=== PATIENT | female | born 2000 | race Caucasian/White ===

== ENCOUNTER 2024-05-22 01:05 | Emergency (ER) | payer OTHER, SELFPAY ==
[2024-05-22 01:10] VITALS: BP 113/74
[2024-05-22 03:54] VITALS: BP 105/71
--- NOTE | 2024-05-22 04:34 | ED.GENMED ---
History of Present Illness
General
Chief Complaint: Musculo-Skeletal Complaint
Source: patient
Exam Limitations: none
Time Seen by Provider: 05/22/24 04:28
History of Present Illness
History of Present Illness:
See MDM
Past History
Past History
ED Past Medical History: None
ED Past Surgical History: None
Social History
Tobacco: Non-smoker
Alcohol: None
Phy Exam
Physical Exam
Physical Exam:
See MDM
Course
Orders/Labs/Results
Orders:
Orders
05/22/24 01:14
CR Ankle - Left Min 3 Views Urgent
Comment:
Reason For Exam: injury
Foot, Left 3 View [CR Foot - Left Min 3 Views] Urgent
Comment:
Reason For Exam: injury
Vital Signs
Initial and Last Documented VS:
Initial Vital Signs
Temp Pulse Resp BP Pulse Ox
99 F 78 20 113/74 99
05/22/24 01:10 05/22/24 01:10 05/22/24 01:10 05/22/24 01:10 05/22/24 01:10
Last Documented Vital Signs
Temp Pulse Resp BP Pulse Ox
99 F 74 20 105/71 100
05/22/24 01:10 05/22/24 03:54 05/22/24 01:10 05/22/24 03:54 05/22/24 03:54
MDM/Problems Addressed
Differential Diagnosis Includes:
HPI and MDM Narrative:
23-year-old female presenting for evaluation of left ankle pain. Patient missed stepped on a curb and she twisted her ankle. Patient having trouble bearing weight. On my exam, there is mild tenderness to the left lateral malleolus. X-rays were
performed prior to my evaluation showing no obvious fracture. Discussed likely ankle sprain. Will give crutches and discussed follow-up with podiatry if symptoms persist. Discussed NSAIDs and ice
Physical exam
General: Well appearing and non-toxic
HEENT: protecting airway
Neck: appears supple
CV: No evidence of cyanosis
Resp: No accessory muscle use
Abd: Non-distended
Extremities: Tenderness to palpation of left lateral malleolus. Extremity otherwise neurovascularly intact
Neuro: alert
Psych: Normal affect
Skin: Intact
Problems Addressed including Acute and Chronic Conditions affecting care:
1. Ankle sprain
Acuity: acute
Prognosis: stable
Details: X-rays negative for fracture. Discussed rest and ice. Will give crutches and discussed follow-up with podiatry if symptoms persist
Differential Diagnosis (but not limited to): Ankle sprain, ankle fracture
Testing considered: Tib-fib x-ray but pain appears to be localized to lateral malleolus
Drug therapy (if applicable): OTC meds, please see d/c instruction regarding Rx drugs
Amount and/or Complexity of Data Reviewed
Clinical info obtained from: Patient
External data reviewed: N/A
Labs I independently reviewed (but not limited to): N/A
Radiology: X-ray independently reviewed: Ankle and foot x-ray without obvious fracture
Pulse Ox: not hypoxic
EKG independently reviewed: N/A
Loaders: N/A
Critical Care: N/A
Risk of Complication:
Social Determinants of health: Good social support
Discussed with other providers: N/A
Escalation of Care includes Admit/Obs: After being observed in the Emergency Department, pt stable for discharge.
Occasional wrong word or 'sound a like' substitutions may have occurred due to the inherent limitations of voice recognition software. Read the chart carefully and recognize, using context, where substitutions have occurred.
*Critical Care Note
Total Time (30-74mins, 75-104mins- exclusive of procedures): Not Applicable
ED Attending Note
-
Portions of this chart may have been created with voice recognition software.� Occasional wrong word or��sound alike� substitutions may have occurred due to the inherent limitations of voice recognition software.
Discharge Plan
Departure
Patient Disposition: Home (Routine Discharge)
Date of Disposition: 05/22/24
Time of Disposition: 04:34
Patient with high blood pressure during this ER visit?: No
Discharge Problem:
Left ankle sprain
Instructions: Ankle Sprain ED
Referrals:
Duran Tee DPM [Active] -
PRIVATE,PHYSICIAN [Family Provider] -
Activity Restrictions/Additional Instructions:
Please rest the ankle and use Motrin and ice. If symptoms persist, please follow-up with the compensation programs manager.
Interventions
Interventions:
*Risk Screen - Suicide Last Done: 05/22/24 01:10
*General Assessment Last Done: 05/22/24 01:10
*Neglect/Abuse Screening Last Done: 05/22/24 01:10
ED- Fall Risk Assessment Last Done: 05/22/24 01:10
*ED COVID-19 Vaccine History Last Done: 05/22/24 01:10
ED-Musculoskeletal Assessment Last Done: 05/22/24 03:43
Discharge Date and Time
Print Language: MALAY
[2024-05-22] MEDS: MOTRIN 400 MG PO (04:41)
== END 2024-05-22 05:07 | disposition home or self-care (01) ==
LOC: EMR 01:05
PROVIDERS: EMERGENCY PHYSICIAN Student in an Organized Health Care Education/Training Program
DX: S93.402A Sprain of unspecified ligament of left ankle, initial encounter (principal); X50.1XXA Overexertion from prolonged static or awkward postures, initial encounter
CPT/HCPCS: 99283; 73610; 73630

== ENCOUNTER 2024-07-02 01:16 | Emergency (ER) | payer OTHER, SELFPAY ==
[2024-07-02 01:20] VITALS: BP 120/89
--- NOTE | 2024-07-02 01:33 | ED.GENMED ---
History of Present Illness
<VIRGINIA Martinez - Last Filed: 07/02/24 02:39>
General
Chief Complaint: Flank Pain
Source: patient
Time Seen by Provider: 07/02/24 01:30
Nursing documentation reviewed up to this point in time: agreed with
History of Present Illness
History of Present Illness:
Pt is a 23 yo F with a history of asthma who presents to the emergency department with L sided flank pain x 1.5 weeks. Pt states that the pain is located in the left flank and that it is non-radiating. Pt describes the pain as dull and rates it a
5/10. Pt states that the pain is constant. She denies the pain worsening or improving with movement or changes in position. Pt also admits to associated urinary frequency and feeling that she has not fully emptied her bladder. She states that she
has felt nauseous since having the flank pain. Pt denies fever, vomiting, burning with urination, dysuria, hematuria, changes in bowel movement, vaginal discharge. Pt denies injury, fall, or heavy lifting. Last menstrual period was 2 weeks ago.
Past History
<VIRGINIA Martinez - Last Filed: 07/02/24 02:39>
Past History
ED Past Medical History: None
ED Past Surgical History: None
Social History
Tobacco: Non-smoker
Alcohol: None
Review of Systems
<VIRGINIA Martinez - Last Filed: 07/02/24 02:39>
Review of Systems
Allergies reviewed?: Yes
Constitutional: Reports no symptoms
EENT: Reports no symptoms
Respiratory: Reports no symptoms
Cardiac: Reports no symptoms
ABD/GI: Reports nausea
: Reports frequency and flank pain
Neurological: Reports no symptoms
Phy Exam
<VIRGINIA Martinez - Last Filed: 07/02/24 02:39>
General Physical Exam
General Presentation: well appearing
General age: appears stated age
General Skin: warm
General Habitus: normal
General Mental: alert
General Hydration: appears well hydrated
Cardiovascular Exam
Cardiovascular Exam: regular rate/rhythm
Pulmonary Exam
Pulmonary Exam: lungs clear
Gastrointestinal Exam
Gastrointestinal Exam: normal bowel sounds, non tender and soft
Course
<Tata Pagan STPA - Last Filed: 07/02/24 02:39>
Orders/Labs/Results
Orders:
Orders
07/02/24 01:50
Urinalysis Reflex To Culture Urgent
Date Specimen was Collected: 07/02/24
Time Specimen was Collected: :24
07/02/24 02:09
Add On- LAB Urgent
Tests Added?: urine hcg
07/02/24 02:20
Encourage PO Hydration-Treatme ONCE
Vital Signs
Initial and Last Documented VS:
Initial Vital Signs
Temp Pulse Resp BP Pulse Ox
98.9 F 67 16 120/89 100
07/02/24 01:20 07/02/24 01:20 07/02/24 01:20 07/02/24 01:20 07/02/24 01:20
Last Documented Vital Signs
Temp Pulse Resp BP Pulse Ox
98.9 F 67 16 120/89 99
07/02/24 01:20 07/02/24 01:20 07/02/24 01:20 07/02/24 01:20 07/02/24 02:00
<Veronica Sepulveda DO - Last Filed: 07/02/24 02:34>
Orders/Labs/Results
Orders:
Orders
07/02/24 01:50
Urinalysis Reflex To Culture Urgent
Date Specimen was Collected: 07/02/24
Time Specimen was Collected: 01:24
07/02/24 02:09
Add On- LAB Urgent
Tests Added?: urine hcg
07/02/24 02:20
Encourage PO Hydration-Treatme ONCE
Vital Signs
Initial and Last Documented VS:
Initial Vital Signs
Temp Pulse Resp BP Pulse Ox
98.9 F 67 16 120/89 100
07/02/24 01:20 07/02/24 01:20 07/02/24 01:20 07/02/24 01:20 07/02/24 01:20
Last Documented Vital Signs
Temp Pulse Resp BP Pulse Ox
98.9 F 67 16 120/89 99
07/02/24 01:20 07/02/24 01:20 07/02/24 01:20 07/02/24 01:20 07/02/24 02:00
<VIRGINIA Martinez - Last Filed: 07/02/24 02:39>
MDM/Problems Addressed
Differential Diagnosis Includes:
Musculoskeletal strain, pyelonephritis, acute cystitis
<VIRGINIA Martinez - Last Filed: 07/02/24 02:39>
*Critical Care Note
Total Time (30-74mins, 75-104mins- exclusive of procedures): Not Applicable
ED Attending Note
<VIRGINIA Martinez - Last Filed: 07/02/24 02:39>
-
Portions of this chart may have been created with voice recognition software.� Occasional wrong word or��sound alike� substitutions may have occurred due to the inherent limitations of voice recognition software.
<Veronica Sepulveda DO - Last Filed: 07/02/24 02:34>
ED Attending Note
Patient seen and examined by attending physician: Yes
I performed the substantive portion of visit, reviewed & personally made and approve the management plan that is documented in note by myself or FATOU.: Yes
ED Attending Note:
This is a 23-year-old female with history of anxiety/bipolar disorder, asthma, rhinitis and more recently over the past several months has been complaining of generalized myalgias, fatigue. She has been following with PCP as well as third loader.
Thus far rheumatologic workup has been inconclusive.
She was started on meloxicam daily by her PCP 3 weeks ago for her joint pains.
She complains of 1-1/2-week history of bilateral flank pain left greater than right as well as intermittent dysuria. She denies urinary frequency nor urgency, denies hematuria, no fever no chills, no nausea nor vomiting. She does admit to somewhat
chronic constipation passing a bowel movement every 3 to 4 days. Maintained on Benefiber daily over the past month.
Patient states
She was diagnosed with a possible kidney infection during ED visit March 17 at [facility]. Initially presented there with chest pain and shortness of breath and had been treated with a Z-José and albuterol 1 week prior to that ED visit due to
acute bronchitis. During that ED visit she also mentioned bilateral flank pain and she underwent imaging including CTA of the chest which was negative for PE, negative for pneumonia. CT of the abdomen pelvis showed unremarkable kidneys
bilaterally, overall unremarkable CT abdomen pelvis save for incidental 1.7 cm right ovarian cyst and small amount of free fluid in the right pelvis consistent with ruptured ovarian cyst.
Urinalysis at that visit concerning for UTI and she was started on Augmentin. Urine culture returned positive for 10,000-49,000 colony count group B strep. She states antibiotics were changed with that culture result and a follow-up urine culture
later in March was negative for UTI.
She denies risk of , maintained on control pills, last menstrual period 2 weeks ago.
She denies heavy lifting, denies falls or injuries. She denies chest pain or cough no shortness of breath. Flank pain is most noted first thing in the morning when she gets up and also worse towards the end of the day but overall has been
constant. Nonradiating. She has not had a rash.
GENERAL: 23-year-old female appears her stated age, awake and alert, pleasant, appears in no acute distress. Afebrile. Normotensive.
EYE: pupils equal and reactive. anicteric
NECK: Supple, nontender, no meningismus, no significant adenopathy.
ENT: oral mucosa is moist. No rhinorrhea.
CARDIAC: Regular rate and rhythm. no murmur.
LUNGS: Clear breath sounds bilaterally, no acute respiratory distress, no wheezes/rales/rhonchi
ABDOMEN: Soft, nondistended, without focal tenderness, no r/g, mild bilateral CVA tenderness with percussion as well as mild tenderness with palpation, normoactive BS.
NEUROLOGICAL: Alert and oriented x3, no focal neuro deficits. Gait is steady.
SKIN: Warm and dry, normal color, skin intact. No rash.
MUSCULOSKELETAL: No C/C/E. peripheral pulses are full and equal b/l. No palpable tenderness.
PSYCH: Normal and appropriate interaction.
Concern for potential UTI, pyelonephritis. Musculoskeletal flank pain. Renal colic is much less likely and recent CT 3 months ago showed no evidence of kidney stone.
Will check urinalysis. Will consider imaging depending on results.
07/02/2024 0233 AM
Urinalysis is unremarkable, completely clear.
Patient remains afebrile and overall comfortable in appearance.
I suspect her bilateral flank pain is more musculoskeletal in nature especially in light of ongoing chronic diffuse joint pain.
Already following with PCP as well as third loader.
Reassuring imaging just 3 months ago, with unremarkable urinalysis, at this point no indication to repeat.
Recommend she continue meloxicam and can add Tylenol as needed for discomfort.
Local moist heat.
Prompt follow-up with PCP as well as third loader.
Discharge Plan
Departure
Patient Disposition: Home (Routine Discharge)
Date of Disposition: 07/02/24
Time of Disposition: 02:25
Patient with high blood pressure during this ER visit?: No
Condition: Good
Discharge Problem:
Bilateral flank pain
Instructions: Flank Pain (DC)
Referrals:
UNKNOWN - PT DOES,NOT KNOW [Family Provider] -
Activity Restrictions/Additional Instructions:
Continue daily meloxicam as prescribed by primary care physician. You may take Tylenol as needed for additional pain relief.
Stay well-hydrated on a daily basis.
Continue daily Benefiber and along with this I want you to start MiraLAX, 17 g or 1 cap full daily.
Follow-up with your primary care physician as well as third loader for further evaluation.
Interventions
Interventions:
*Risk Screen - Suicide Last Done: 07/02/24 01:20
*General Assessment Last Done: 07/02/24 01:53
*Neglect/Abuse Screening Last Done: 07/02/24 01:20
ED- Fall Risk Assessment Last Done: 07/02/24 01:55
*ED COVID-19 Vaccine History Last Done: 07/02/24 01:20
QJ-Dyltzz-Obvigpylxa Assessment Last Done: 07/02/24 01:53
ED-Female Genitourinary Assessment Last Done: 07/02/24 01:53
Discharge Date and Time
Print Language: FAROESE
[2024-07-02 01:52] VITALS: BMI 28.8
[2024-07-02 02:06] LABS: Urine Albumin Negative (Neg - Trace); Urine Bilirubin Negative (Negative); Urine Character Clear (Clear); Urine Color Straw; Urine Glucose Negative (Negative); Urine Ketone Negative (Negative); Urine Leukocyte Negative (Negative); Urine Nitrite Negative (Negative); Urine Occult Blood Negative (Negative); Urine Urobilinogen Negative (Neg - 1+); Urine pH 6.5 (5.0-9.0)
== END 2024-07-02 02:43 | disposition home or self-care (01) ==
LOC: EMR 01:16
PROVIDERS: EMERGENCY PHYSICIAN Emergency Medicine
DX: R10.9 Unspecified abdominal pain (principal); J45.909 Unspecified asthma, uncomplicated
CPT/HCPCS: 99283; 81003